=== PATIENT | male | born 1950 | race Caucasian/White ===

== ENCOUNTER 2023-11-07 09:46 | Emergency (ER) | payer OTHER ==
[~2023-11-07] VITALS: Ht 167.6 cm; Wt 71.4 kg
[~2023-11-07 09:46] MED LIST: AMOX TR-K CLV1 EAC1 PO; LIDODERM1 EACH TOP; LISINOPRIL10 MG PO; METHOCARBAMOL750 MG PO; NARCAN4 MG NAS; OXYCODONE HCL5 MG PO; PERCOCET 5-3251 EACH PO; TAMSULOSIN HCL0.4 MG PO
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
[2023-11-07 10:46] VITALS: BP 134/86
== END 2023-11-07 10:47 | disposition home or self-care (01) ==
LOC: ED 09:46
DX: T22.20XA Burn of second degree of shoulder and upper limb, except wrist and hand, unspecified site, initial encounter (principal); V99.XXXA Unspecified transport accident, initial encounter
CPT/HCPCS: 99283

== ENCOUNTER 2024-03-18 08:20 | Day surgery (SDC) | payer OTHER ==
[2024-03-15 13:44] VITALS: BP 133/72
[~2024-03-18] VITALS: Ht 170.2 cm; Wt 75.0 kg
[~2024-03-18 08:20] MED LIST changes: +AVAPRO300 MG PO; +IBLOOD GLUCOSE TEST STRIP 1 EA TEST VI PRN; +LACTATED RINGER'S 1,000 ML IV SCH; +LIDOCAINE HCL 1% 5 ML SDV INJ ONE; +MIDAZOLAM HCL 5 MG/5 ML VIAL IV PRN; +PRILOSEC OTC20 MG PO; +fentaNYL citrate 100 MCG/2 ML VIAL IV PRN
[2024-03-18 08:41] VITALS: BP 143/82
[2024-03-18] MEDS ORDERED: propofoL 200 MG/20 ML VIAL ONE (08:49)
[2024-03-18] MEDS ORDERED: LIDOCAINE HCL 2% 5 ML SDV ONE (08:49)
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
[2024-03-18 10:40] VITALS: BP 121/75
--- NOTE | 2024-03-22 11:34 | PATH ---
[facility] [address] [place], [place] [address] Signed SPECIMEN(S): A DESCENDING POLYP, 85 CM SPECIMEN SOURCE: A. DESCENDING POLYP, 85 CM CLINICAL HISTORY: History constipation, melena, polyp FINAL PATHOLOGIC DIAGNOSIS: Colon, descending at 85 cm, polypectomy: - Tubular adenoma BRP MICROSCOPIC EXAMINATION: Histologic sections of all submitted blocks are examined by light microscopy. These findings, together with the gross examination, support the pathologic diagnosis. GROSS DESCRIPTION: The specimen, labeled and designated "Perez, T, 1.," and designated on the requisition "descending/left polypectomy, 85 cm," is received in formalin and consists of two sharma soft tissue fragments that measure 0.1 and 0.2 cm in greatest dimension. The specimen is entirely submitted in (A1). FB (under the direct supervision of a pathologist) The Gross Description was prepared using a voice recognition system. The report was reviewed for accuracy; however, sound-alike word errors, addition and/or deletions may occur. If there is any question about this report, please contact Client Services. ADDITIONAL NOTES: Immunohistochemical and/or in situ hybridization studies if performed in this case included appropriate positive controls that reacted as expected. This test was developed and its performance characteristics determined by [facility]. It has not been cleared or approved by the U.S. Food and Drug Administration. The FDA has determined that such clearance or approval is not necessary. This test is used for clinical purposes. It should not be regarded as investigational or for research. [facility] is certified under the Clinical Laboratory Improvement Amendments of 1988 (CLIA) as qualified to perform high complexity clinical PATIENT NAME: ELADIA PEREZ PATHOLOGY DATE OF : 50 REPORT #: [id number] PHYSICIAN: CARLO MANZANO PCP: FRIEDA JIMENEZ DO REPORT IS CONFIDENTIAL AND NOT TO BE RELEASED WITHOUT AUTHORIZATION [facility] [address] [place] [address] Signed laboratory testing. PERFORMING LABORATORY: Technical component was [place] [address] (CLIA# [id number]). Professional interpretation was performed by [facility] Pathology - [facility], [address] [place] [address] (CLIA#: [id number]). Diagnostician: Bill Arguelles MD Pathologist Electronically Signed 03/22/2024 Copies: ~ PATIENT NAME: ELADIA PEREZ PATHOLOGY DATE OF : 50 REPORT #: [id number] PHYSICIAN: CARLO MANZANO PCP: FRIEDA JIMENEZ DO REPORT IS CONFIDENTIAL AND NOT TO BE RELEASED WITHOUT AUTHORIZATION
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
== END 2024-03-18 10:54 | disposition home or self-care (01) ==
LOC: DS 08:20
PROVIDERS: ATTEND Colon & Rectal Surgery
PROC: 0DBG8ZZ Excision of Left Large Intestine, Via Natural or Artificial Opening Endoscopic (ICD-10-PCS; principal; 2024-03-18 09:45)
DX: Z12.11 Encounter for screening for malignant neoplasm of colon (principal); D12.4 Benign neoplasm of descending colon; K57.30 Diverticulosis of large intestine without perforation or abscess without bleeding; K64.8 Other hemorrhoids; I10 Essential (primary) hypertension; N40.0 Benign prostatic hyperplasia without lower urinary tract symptoms; K21.9 Gastro-esophageal reflux disease without esophagitis; Z79.899 Other long term (current) drug therapy; Z87.19 Personal history of other diseases of the digestive system
CPT/HCPCS: 00811; J2003; J2704; J7121